=== PATIENT | female | born 1930 | race Caucasian/White ===

== ENCOUNTER 2016-10-02 11:27 | Inpatient (IN) | payer MEDICARE, OTHER ==
[~2016-10-02] VITALS: Ht 157.5 cm; Wt 93.3 kg
[~2016-10-02 11:27] MED LIST: ANTIBIOTIC; ARICEPT ODT5 MG PO; ASPI81EC PO; AZOR 10 MG-20 M1 TAB PO; AZOR 5 MG-40 MG1 TAB PO; CALCIUM + D 6001 TA1 PO; CALCIUM 600/VIT1 TAB PO; CALCIUM 600MG+D1 TAB PO; CIPRO; CIPRO 250MG TA250 MG PO; CIPRO 500MG TA500 MG PO; CITALOPRAM20 MG PO; CLEOCIN HCL300 MG PO; COREG25 MG PO; COZAAR 25MG25 MG/TAB PO; COZAAR100 MG PO; CRANBERRY1 CAP PO; CRANBERRY450 MG PO; DESYREL 50MG50 MG PO; FISH OIL1000 MG PO; HCTZ 25MG25 MG PO; LASIX 40MG TABL40 MG PO; LEVOTHYROXINE0.05 MG PO; LEVOXYL0.05 MG PO; LIPITOR 40MG TA40 MG PO; LIPITOR 80MG80 MG PO; MASON NATURAL1200 MG PO; NIACIN TIME RE500 MG PO; NIACIN500 M3 PO; NORCO 325 MG-51 TAB PO; PYRIDIUM 100MG100 MG PO; WELCHOL625 MG PO; ZOCOR PO
[2016-10-02 12:11] VITALS: BP 119/69; PULSE 66; TEMP 98.2
[2016-10-03 05:44] VITALS: BP 94/71; PULSE 74; TEMP 98.3
[2016-10-03 09:56] LABS: BASO % 0.5 % (0.0-2.0); EOS # 0.1 (0.0-0.7); EOS % 1.3 % (0-4.0); GRAN # 5.8 (1.4-6.5); GRAN % 76.6 % (42.2-75.2); HEMATOCRIT 43.3 % (37.0-47.0); HEMOGLOBIN 13.8 g/dl (12.5-16.0); LYMPH # 1.1 (1.2-3.4); MEAN CELL VOLUME 93 fl (80.0-100.0); MEAN CORPUSCULAR HEMOGLOBIN 30 pg (27.0-31.0); MEAN CORPUSCULAR HGB CONC 32 g/dl (33.0-37.0); MEAN PLATELET VOLUME 9.4 fl (7.4-10.4); MONO # 0.4 (0.1-0.6); MONO % 5.8 % (1.7-9.3); PLATELET COUNT 328 K/mm3 (130-400); RED BLOOD COUNT 4.68 M/mm3 (4.10-5.30); REDCELL DISTRIBUTION WIDTH-CV 14.7 % (11.5-14.5); WHITE BLOOD COUNT 7.6 K/mm3 (4.8-10.8)
[2016-10-03 10:08] LABS: CALCIUM 9.8 mg/dL (8.4-10.2); CREATININE, serum 1.11 mg/dL (0.52-1.25); MAGNESIUM 2.1 mg/dL (1.6-2.3)
[2016-10-03 16:44] VITALS: BP 117/54; PULSE 74; TEMP 97.7
[2016-10-04 05:13] VITALS: BP 129/49; PULSE 65; TEMP 97.5
[2016-10-04 16:15] VITALS: BP 119/63; PULSE 68; TEMP 97.9
[2016-10-05 05:15] VITALS: BP 168/83; PULSE 60; TEMP 96.7
[2016-10-05 18:36] VITALS: BP 125/53; PULSE 72; TEMP 97.4
[2016-10-06 04:17] VITALS: BP 135/98; PULSE 66; TEMP 97.3
[2016-10-06 18:00] VITALS: BP 129/63; PULSE 67; TEMP 97.8
[2016-10-07 02:36] VITALS: BP 125/71; PULSE 73; TEMP 97.6
[2016-10-07 18:00] VITALS: BP 153/72; PULSE 75; TEMP 97.8
[2016-10-08 07:00] VITALS: BP 114/65; PULSE 65; TEMP 97.4
[2016-10-08 16:17] VITALS: BP 127/60; PULSE 73; TEMP 98.5
[2016-10-09 04:42] VITALS: BP 115/39; PULSE 59; TEMP 97.5
[2016-10-09 16:39] VITALS: BP 115/60; PULSE 76; TEMP 98.2
[2016-10-10 05:09] VITALS: BP 137/59; PULSE 76; TEMP 97
[2016-10-10 16:26] VITALS: BP 127/52; PULSE 70; TEMP 97.9
[2016-10-11 04:37] VITALS: BP 133/60; PULSE 67; TEMP 96.8
[2016-10-11 16:08] VITALS: BP 144/83; PULSE 71; TEMP 97.7
[2016-10-12 04:44] VITALS: BP 132/51; PULSE 65; TEMP 98.2
[2016-10-12 17:23] VITALS: BP 137/65; PULSE 73; TEMP 98.3
[2016-10-13 06:13] VITALS: BP 127/48; PULSE 80; TEMP 97.6
[2016-10-13 07:41] LABS: PH 6 (5-8); SQUAMOUS EPITHELIAL 0-2 /hpf; URINE APPEARANCE Clear; URINE BACTERIA Rare /hpf; URINE BILIRUBIN Negative (NEGATIVE); URINE BLOOD Negative (NEGATIVE); URINE COLOR Yellow; URINE GLUCOSE Negative (NEGATIVE); URINE KETONE Negative (NEGATIVE); URINE RBC 0-2 /hpf; URINE UROBILINOGEN Negative (NEGATIVE)
[2016-10-13 17:57] VITALS: BP 128/98; PULSE 85; TEMP 97.8
[2016-10-14 05:30] VITALS: BP 102/58; PULSE 67; TEMP 97.6
[2016-10-14] MEDS ORDERED: PLAVIX 75MG TAB75 MG PO (11:19)
[2016-10-14] MEDS ORDERED: COZAAR 50MG50 MG/TAB PO (11:20)
[2016-10-14] MEDS ORDERED: DULCOLAX S10 MG/SUPP RC (11:21)
[2016-10-14] MEDS ORDERED: MIRALAX PA17 GM/Dose PO (11:21)
[2016-10-14] MEDS ORDERED: SEROQUEL50 MG PO (11:22)
[2016-10-14] MEDS ORDERED: DESYREL 100MG100 MG PO (11:22)
[2016-10-14] MEDS ORDERED: SEROQUEL 2525 MG/TAB PO (11:22)
[2016-10-14] MEDS ORDERED: TYLENOL 325MG325 MG PO (11:23)
[2016-10-14] MEDS ORDERED: DILANTIN O100 MG/4 M PO (11:23)
[2016-10-14] MEDS ORDERED: KEPPRA SUSP100 MG/ML PO (11:23)
[2016-10-14 13:54] VITALS: BP 102/58; PULSE 67; TEMP 97.6
== END 2016-10-14 14:19 | DRG 57 ==
PROVIDERS: Internal Medicine
DX: I69.354 Hemiplegia and hemiparesis following cerebral infarction affecting left non-dominant side (principal); N39.0 Urinary tract infection, site not specified; F05 Delirium due to known physiological condition; I69.391 Dysphagia following cerebral infarction; R13.10 Dysphagia, unspecified; G30.9 Alzheimer's disease, unspecified; F02.80 Dementia in other diseases classified elsewhere, unspecified severity, without behavioral disturbance, psychotic disturbance, mood disturbance, and anxiety; I25.10 Atherosclerotic heart disease of native coronary artery without angina pectoris; Z95.0 Presence of cardiac pacemaker; I50.9 Heart failure, unspecified
CPT/HCPCS: 90791-AI; 99223-AI; 99232-AI; 99239; J1650